=== PATIENT | female | born 1965 | race Caucasian/White ===

== ENCOUNTER 2020-05-13 06:05 | Observation (INO) ==
[2020-05-13] MEDS ORDERED: CeFAZolin Syr 2,000MG/20 ML 2,000 MG/20 ML SYRINGE IVPB ONE (06:29)
[2020-05-13] MEDS ORDERED: Ringers Solution, Lactated 1,000 ML IVC SCH ×2 (06:30→10:06)
[2020-05-13] MEDS ORDERED: Lidocaine -MPF 2% 2 ML VIAL ONE ×2 (07:11→08:10)
[2020-05-13] MEDS ORDERED: *HR* Propofol 200 MG/20 ML VIAL IVP ONE ×2 (07:11→08:10)
[2020-05-13] MEDS ORDERED: Ondansetron 4 MG/2 ML VIAL ONE (07:11)
[2020-05-13] MEDS ORDERED: *HR* FentaNYL (PF) 100 MCG/2 ML VIAL ONE (07:11)
[2020-05-13] MEDS ORDERED: *HR* Midazolam HCl 2 MG/2 ML VIAL ONE (07:11)
[2020-05-13] MEDS ORDERED: *HR* Succinylcholine 200 MG/10 ML VIAL IVP ONE (07:11)
[2020-05-13] MEDS ORDERED: Dexamethasone 4 MG/ML VIAL ONE (07:11)
[2020-05-13] MEDS ORDERED: Lidocaine HCL 4 ML Topical Solution (Laryng-O-Jet Kit Sterile Pak) TP ONE (07:12)
[2020-05-13] MEDS ORDERED: Tranexamic Acid 1,000 MG/10 ML VIAL ONE ×2 (07:16→08:10)
[2020-05-13] MEDS ORDERED: Vancomycin 1,000 MG VIAL ONE (07:16)
[2020-05-13] MEDS ORDERED: Ethanol\\Acetic Acid\\Na Ace\\Ben 1,000 ML IRRIG.SOLN IR ONE (07:16)
[2020-05-13] MEDS ORDERED: Lidocaine -MPF 2% 5 ML VIAL ONE (07:18)
[2020-05-13] MEDS ORDERED: *HR* OxyCODONE Immed Rel 5 MG TABLET PO PRN (07:20)
[2020-05-13] MEDS ORDERED: Ondansetron 4 MG/2 ML VIAL IVP PRN ×2 (07:20→10:06)
[2020-05-13] MEDS ORDERED: Albuterol 2.5 MG/3 ML NEBULIZER IH PRN (07:20)
[2020-05-13] MEDS ORDERED: Pregabalin 50 MG CAPSULE PO PRN (07:20)
[2020-05-13] MEDS ORDERED: Ipratropium Neb 0.5 MG NEBULIZER IH PRN (07:20)
[2020-05-13] MEDS ORDERED: Ropivacaine/PF 0.5% 30 ML VIAL ONE (07:23)
[2020-05-13] MEDS ORDERED: ROPIVACAINE/PF/NS 0.25% 1 EACH SYRINGE INTRAART ONE (07:23)
[2020-05-13] MEDS ORDERED: TOTAL JOINT MIXTURE (100ML) INTRAART ONE (07:45)
[2020-05-13] MEDS ORDERED: *HR* OxyCODONE ER (12 HR) 10 MG TABLET PO ONE (07:45)
[2020-05-13] MEDS ORDERED: Pregabalin 50 MG CAPSULE PO ONE (07:45)
[2020-05-13] MEDS ORDERED: Famotidine 20 MG/2 ML VIAL IVP ONE (07:45)
[2020-05-13] MEDS ORDERED: Povidone-Iodine 45 ML, Sodium Chloride IRRigation 1,000 ML IR ONE (07:45)
[2020-05-13] MEDS ORDERED: Acetaminophen IV 1,000 MG/100 ML BAG IVPB ONE (07:45)
[2020-05-13] MEDS ORDERED: *HR* HYDROMORPHONE 2 MG/ML VIAL ONE (07:54)
[2020-05-13] MEDS ORDERED: *HR* Atropine Sulfate 8 MG/20 ML VIAL IVP ONE (08:04)
[2020-05-13] MEDS: *HR* FentaNYL (PF) 100 MCG/2 ML VIAL IVP PRN ×3 (09:08→09:20)
[2020-05-13] MEDS ORDERED: MOM Conc 10 ML UD.LIQ PO PRN (10:06)
[2020-05-13] MEDS ORDERED: Naloxone 0.4 MG/ML INJ IVP PRN (10:06)
[2020-05-13] MEDS ORDERED: *HR* Dextrose 50 % in Water (Vial) 50 ML VIAL IVP PRN (10:06)
[2020-05-13] MEDS ORDERED: Sennosides 8.6 MG TABLET PO PRN (10:06)
[2020-05-13] MEDS ORDERED: *HR* Promethazine 25 MG/ML VIAL IM PRN (10:06)
[2020-05-13] MEDS ORDERED: D5% in Water 1,000 ML IVC PRN (10:06)
[2020-05-13] MEDS ORDERED: Dextrose Gel 15 GM/37.5 ML TUBE PO PRN ×4 (10:06)
[2020-05-13 10:35] LABS: Hematocrit 37.4 % (35.3-44.9); Hemoglobin 12.3 g/dL (11.5-15.4)
[2020-05-13] MEDS: Gabapentin 400 MG CAPSULE PO SCH ×3 (11:39→21:19)
[2020-05-13] MEDS: Multivit/Ca/Min/Fe/FA 1 TAB TABLET PO SCH (11:39)
[2020-05-13] MEDS: Insulin LISPRO 300 UNITS/3 ML VIAL SQ SCH ×3 (12:56→21:19)
[2020-05-13] MEDS: *HR* OxyCODONE Immed Rel 5 MG TABLET PO PRN ×3 (14:07→23:03)
[2020-05-13] MEDS: Ascorbic Acid 500 MG TABLET PO SCH (15:52)
[2020-05-13] MEDS: CeFAZolin 2 GM/120 ML BAG IVPB SCH ×2 (15:53→23:10)
[2020-05-14] MEDS: *HR* OxyCODONE Immed Rel 5 MG TABLET PO PRN ×5 (03:49→21:22)
[2020-05-14 07:24] LABS: Basophils % 0.1 %; Eosinophils % 0.1 %; Hematocrit 28.2 % (35.3-44.9); Hemoglobin 9.2 g/dL (11.5-15.4); Immature Granulocytes % 0.3 % (0-4); Lymphocytes # 1.9 K/mcL (0.6-4.6); Lymphocytes % 13.2 %; Mean Corpuscular HGB Conc 32.6 g/dL (31.6-35.5); Mean Corpuscular Hemoglobin 32.3 pg (28.0-33.3); Mean Corpuscular Volume 98.9 fL (83.0-100.0); Mean Platelet Volume 10.5 fL (9.4-12.4); Monocytes # 1.3 K/mcL (0.0-1.3); Monocytes % 8.8 %; Neutrophils # 11.3 K/mcL (1.6-8.9); Platelet Count 218 K/mcL (140-400); Red Blood Count 2.85 M/mcL (3.82-4.97); Red Cell Distribution Width 13.1 % (11.5-14.5); Segmented Neutrophils % 77.5 %; White Blood Count 14.6 K/mcL (4.3-11.1)
[2020-05-14 07:45] LABS: BUN/Creatinine Ratio 21 (6-26); Blood Urea Nitrogen 22 mg/dL (6-20); Calcium 8.6 mg/dL (8.6-10.3); Carbon Dioxide 26 mEq/L (23-29); Chloride 108 mEq/L (98-107); Glucose 129 mg/dL (70-105); Osmolality,Calculated 293 (280-300); Potassium 4.4 mEq/L (3.5-5.1); Sodium 139 mEq/L (136-145); eGFR For African Americans > 60 (> 60); eGFR For Non-African Americans 54 (> 60)
[2020-05-14] MEDS: Multivit/Ca/Min/Fe/FA 1 TAB TABLET PO SCH (09:19)
[2020-05-14] MEDS: Gabapentin 400 MG CAPSULE PO SCH ×4 (09:20→21:03)
[2020-05-14] MEDS: Ascorbic Acid 500 MG TABLET PO SCH ×2 (09:20→17:22)
[2020-05-14] MEDS: Aspirin Enteric Coated 81 MG Tablet PO SCH (09:20)
[2020-05-14] MEDS: Insulin LISPRO 300 UNITS/3 ML VIAL SQ SCH ×4 (09:21→21:05)
[2020-05-14] MEDS: HYDROcodone BIT/Homatropine 5 MG TABLET PO PRN ×3 (11:05→19:21)
[2020-05-14] MEDS ORDERED: *HR* FentaNYL PATCH 12 MCG PATCH TD SCH (23:15)
[2020-05-14] MEDS: Acetaminophen IV 1,000 MG/100 ML BAG IVPB SCH (23:38)
[2020-05-15] MEDS: *HR* OxyCODONE Immed Rel 5 MG TABLET PO PRN ×5 (01:48→20:11)
[2020-05-15] MEDS: HYDROcodone BIT/Homatropine 5 MG TABLET PO PRN ×4 (03:40→17:52)
[2020-05-15] MEDS ORDERED: *HR* HYDROmorphone 2 MG/ML SYRINGE IVP ONE (04:53)
[2020-05-15] MEDS: Acetaminophen IV 1,000 MG/100 ML BAG IVPB SCH ×4 (06:03→23:43)
[2020-05-15] MEDS: Insulin LISPRO 300 UNITS/3 ML VIAL SQ SCH ×4 (07:41→19:57)
[2020-05-15] MEDS: Aspirin Enteric Coated 81 MG Tablet PO SCH (07:52)
[2020-05-15] MEDS: Gabapentin 400 MG CAPSULE PO SCH ×4 (07:52→20:10)
[2020-05-15] MEDS: Multivit/Ca/Min/Fe/FA 1 TAB TABLET PO SCH (07:52)
[2020-05-15] MEDS: Ascorbic Acid 500 MG TABLET PO SCH ×2 (07:53→16:49)
[2020-05-15 09:00] LABS: Basophils # 0.1 K/mcL (0.0-0.2); Basophils % 0.6 %; Eosinophils # 0.3 K/mcL (0.0-0.6); Eosinophils % 2.3 %; Hemoglobin 9.6 g/dL (11.5-15.4); Immature Granulocytes % 0.4 % (0-4); Lymphocytes # 2.5 K/mcL (0.6-4.6); Lymphocytes % 20.9 %; Mean Corpuscular Hemoglobin 31.6 pg (28.0-33.3); Mean Corpuscular Volume 98.7 fL (83.0-100.0); Mean Platelet Volume 10.2 fL (9.4-12.4); Monocytes # 1.3 K/mcL (0.0-1.3); Monocytes % 10.6 %; Neutrophils # 7.9 K/mcL (1.6-8.9); Platelet Count 249 K/mcL (140-400); Red Blood Count 3.04 M/mcL (3.82-4.97); Red Cell Distribution Width 13.2 % (11.5-14.5); Segmented Neutrophils % 65.2 %; White Blood Count 12.1 K/mcL (4.3-11.1)
[2020-05-15 09:16] LABS: BUN/Creatinine Ratio 14 (6-26); Blood Urea Nitrogen 11 mg/dL (6-20); Calcium 8.9 mg/dL (8.6-10.3); Carbon Dioxide 31 mEq/L (23-29); Chloride 104 mEq/L (98-107); Glucose 135 mg/dL (70-105); Osmolality,Calculated 287 (280-300); Potassium 3.8 mEq/L (3.5-5.1); Sodium 138 mEq/L (136-145); eGFR For African Americans > 60 (> 60); eGFR For Non-African Americans > 60 (> 60)
[2020-05-16] MEDS: *HR* OxyCODONE Immed Rel 5 MG TABLET PO PRN ×4 (00:13→12:04)
[2020-05-16] MEDS: HYDROcodone BIT/Homatropine 5 MG TABLET PO PRN (02:14)
[2020-05-16] MEDS: Acetaminophen IV 1,000 MG/100 ML BAG IVPB SCH ×2 (06:38→12:05)
[2020-05-16 06:39] VITALS: BP 174/78
[2020-05-16] MEDS: Aspirin Enteric Coated 81 MG Tablet PO SCH (08:09)
[2020-05-16] MEDS: Multivit/Ca/Min/Fe/FA 1 TAB TABLET PO SCH (08:10)
[2020-05-16] MEDS: Gabapentin 400 MG CAPSULE PO SCH ×2 (08:10→12:04)
[2020-05-16] MEDS: Ascorbic Acid 500 MG TABLET PO SCH (08:10)
[2020-05-16] MEDS: Insulin LISPRO 300 UNITS/3 ML VIAL SQ SCH ×2 (08:13→12:04)
== END 2020-05-16 12:20 | disposition home or self-care (01) ==
LOC: SAMDAY 06:05 → 3NENU 06:05
PROVIDERS: ADMIT Orthopaedic Surgery; ATTEND Orthopaedic Surgery